=== PATIENT | male | born 1985 | race Hispanic/Latino ===

== ENCOUNTER → 2022-04-18 | Outpatient (CLI) | payer OTHER ==
[2022-04-18 18:06] LABS: BASOPHILS % (AUTO) 0.8 % (0.0-5.0); EOSINOPHILS % (AUTO) 3.3 % (0.0-8.0); HEMATOCRIT 39.2 % (42-54); MEAN CORPUSCULAR HEMOGLOBIN 27.2 pg (27.0-33.0); MEAN CORPUSCULAR HGB CONC 31.1 g/dL (32.0-36.0); MEAN CORPUSCULAR VOLUME 87.5 fL (79-99); MONOCYTES % (AUTO) 8.5 % (3.0-13.0); NEUTROPHILS % (AUTO) 58.1 % (40.0-77.0); PLATELET COUNT (AUTO) 346 K/uL (130-400); RED BLOOD CELL COUNT(AUTO) 4.48 MIL/uL (4.50-6.20); RED CELL DISTRIBUTION WIDTH 14.3 % (11.0-15.5); WHITE BLOOD COUNT (AUTO) 12.9 K/uL (4.8-10.8)
[2022-04-18 18:14] LABS: ALBUMIN 2.5 g/dL (3.5-5.0); CREATININE 0.7 mg/dL (0.5-1.5); POTASSIUM 3.4 mmol/L (3.5-5.1); TOTAL PROTEIN, SERUM 7.7 g/dL (6.0-8.3)
== END | disposition home or self-care (01) ==
LOC: LAB 11:50
PROVIDERS: ATTEND Dermatology
DX: Z79.899 Other long term (current) drug therapy (principal)
CPT/HCPCS: 36415; 80053; 85025; 86480; 86706; 86804; 87350; 87520; 87522

== ENCOUNTER → 2022-12-02 | Outpatient (CLI) | payer OTHER ==
[2022-12-02 07:43] LABS: BASOPHILS # (AUTO) 0.09 K/uL (0.00-0.20); BASOPHILS % (AUTO) 0.6 % (0.0-5.0); EOSINOPHILS # (AUTO) 0.25 K/uL (0.00-0.70); EOSINOPHILS % (AUTO) 1.7 % (0.0-8.0); IMMATURE GRANULOCYTE ABSOLUTE 0.06 K/uL (0-1); LYMPHOCYTES # (AUTO) 3.7 K/uL (1.0-4.8); LYMPHOCYTES % (AUTO) 24.7 % (21.0-51.0); MEAN CORPUSCULAR HEMOGLOBIN 27.6 pg (27.0-33.0); MEAN CORPUSCULAR HGB CONC 31.3 g/dL (32.0-36.0); MEAN CORPUSCULAR VOLUME 88.3 fL (79-99); MONOCYTES # (AUTO) 0.9 K/uL (0.1-1.0); MONOCYTES % (AUTO) 6.2 % (3.0-13.0); NEUTROPHILS # (AUTO) 9.8 K/uL (1.8-7.7); NEUTROPHILS % (AUTO) 66.4 % (40.0-77.0); PLATELET COUNT (AUTO) 398 K/uL (130-400); RED BLOOD CELL COUNT(AUTO) 4.53 MIL/uL (4.50-6.20); RED CELL DISTRIBUTION WIDTH 14.5 % (11.0-15.5); WHITE BLOOD COUNT (AUTO) 14.8 K/uL (4.8-10.8)
[2022-12-02 08:03] LABS: ALBUMIN 3.1 g/dL (3.5-5.0); BILIRUBIN,TOTAL 0.3 mg/dL (0.2-1.0); CREATININE 0.7 mg/dL (0.5-1.5); POTASSIUM 3.6 mmol/L (3.5-5.1); TOTAL PROTEIN, SERUM 8.2 g/dL (6.0-8.3)
== END | disposition home or self-care (01) ==
LOC: LAB 07:24
PROVIDERS: ATTEND Dermatology
DX: L73.2 Hidradenitis suppurativa (principal)
CPT/HCPCS: 36415; 80053; 85025

== ENCOUNTER → 2023-02-06 | Outpatient (CLI) | payer OTHER ==
[2023-02-06 09:44] LABS: HEMATOCRIT 42.8 % (42-54); MEAN CORPUSCULAR VOLUME 87.5 fL (79-99); PLATELET COUNT (AUTO) 291 K/uL (130-400); RED BLOOD CELL COUNT(AUTO) 4.89 MIL/uL (4.50-6.20); RED CELL DISTRIBUTION WIDTH 13.8 % (11.0-15.5); WHITE BLOOD COUNT (AUTO) 9.2 K/uL (4.8-10.8)
[2023-02-06 09:58] LABS: ALBUMIN 3.2 g/dL (3.5-5.0); BILIRUBIN,TOTAL 0.3 mg/dL (0.2-1.0); CREATININE 0.7 mg/dL (0.5-1.5); TOTAL PROTEIN, SERUM 8.3 g/dL (6.0-8.3)
[2023-02-06 10:26] LABS: BASOPHILS % (MANUAL) 1 % (0-2); EOSINOPHILS % (MANUAL) 3 % (1-6); LYMPHOCYTES % (MANUAL) 48 % (22-44); MAN.DIFF COMMENT-IMPRESSION MANUAL DIFFERENTIAL; MONOCYTES % (MANUAL) 9 % (2-9); PLATELET MORPHOLOGY COMMENT ADEQUATE; REACTIVE LYMPHOCYTES 1 % (0-0); SEGMENTED NEUTROPHILS % 38 % (40-70); TOTAL CELLS COUNTED 100
== END | disposition home or self-care (01) ==
LOC: LAB 08:43
PROVIDERS: ATTEND Nurse Practitioner Family
DX: Z00.00 Encounter for general adult medical examination without abnormal findings (principal)
CPT/HCPCS: 36415; 80053; 85025

== ENCOUNTER → 2023-03-31 | Outpatient (CLI) | payer OTHER ==
[2023-03-31 09:07] LABS: BASOPHILS # (AUTO) 0.08 K/uL (0.00-0.20); BASOPHILS % (AUTO) 0.7 % (0.0-5.0); EOSINOPHILS # (AUTO) 0.39 K/uL (0.00-0.70); EOSINOPHILS % (AUTO) 3.2 % (0.0-8.0); HEMATOCRIT 38.8 % (42-54); IMMATURE GRANULOCYTE ABSOLUTE 0.05 K/uL (0-1); LYMPHOCYTES # (AUTO) 2.9 K/uL (1.0-4.8); LYMPHOCYTES % (AUTO) 23.8 % (21.0-51.0); MEAN CORPUSCULAR HEMOGLOBIN 28.1 pg (27.0-33.0); MEAN CORPUSCULAR VOLUME 87.8 fL (79-99); MONOCYTES # (AUTO) 0.9 K/uL (0.1-1.0); MONOCYTES % (AUTO) 7.1 % (3.0-13.0); NEUTROPHILS # (AUTO) 7.8 K/uL (1.8-7.7); NEUTROPHILS % (AUTO) 64.8 % (40.0-77.0); PLATELET COUNT (AUTO) 323 K/uL (130-400); RED BLOOD CELL COUNT(AUTO) 4.42 MIL/uL (4.50-6.20); RED CELL DISTRIBUTION WIDTH 14.2 % (11.0-15.5); WHITE BLOOD COUNT (AUTO) 12.1 K/uL (4.8-10.8)
[2023-03-31 09:19] LABS: ALBUMIN 2.9 g/dL (3.5-5.0); BILIRUBIN,TOTAL 0.3 mg/dL (0.2-1.0); CREATININE 0.7 mg/dL (0.5-1.5); POTASSIUM 3.7 mmol/L (3.5-5.1); TOTAL PROTEIN, SERUM 8.6 g/dL (6.0-8.3)
== END | disposition home or self-care (01) ==
LOC: LAB 08:35
PROVIDERS: ATTEND Dermatology
DX: L73.2 Hidradenitis suppurativa (principal)
CPT/HCPCS: 36415; 80053; 85025

== ENCOUNTER → 2023-04-26 | Outpatient (CLI) | payer OTHER ==
[2023-04-26 09:45] LABS: BASOPHILS # (AUTO) 0.08 K/uL (0.00-0.20); BASOPHILS % (AUTO) 0.7 % (0.0-5.0); EOSINOPHILS % (AUTO) 3.5 % (0.0-8.0); HEMATOCRIT 37.9 % (42-54); IMMATURE GRANULOCYTE ABSOLUTE 0.04 K/uL (0-1); LYMPHOCYTES # (AUTO) 2.8 K/uL (1.0-4.8); LYMPHOCYTES % (AUTO) 24.5 % (21.0-51.0); MEAN CORPUSCULAR HEMOGLOBIN 27.9 pg (27.0-33.0); MEAN CORPUSCULAR HGB CONC 31.7 g/dL (32.0-36.0); MEAN CORPUSCULAR VOLUME 88.1 fL (79-99); MONOCYTES # (AUTO) 0.8 K/uL (0.1-1.0); MONOCYTES % (AUTO) 6.5 % (3.0-13.0); NEUTROPHILS # (AUTO) 7.4 K/uL (1.8-7.7); NEUTROPHILS % (AUTO) 64.5 % (40.0-77.0); PLATELET COUNT (AUTO) 309 K/uL (130-400); RED CELL DISTRIBUTION WIDTH 14.5 % (11.0-15.5); WHITE BLOOD COUNT (AUTO) 11.5 K/uL (4.8-10.8)
== END | disposition home or self-care (01) ==
LOC: LAB 09:08
PROVIDERS: ATTEND Dermatology
DX: L73.2 Hidradenitis suppurativa (principal)
CPT/HCPCS: 36415; 85025

== ENCOUNTER → 2023-06-02 | Outpatient (CLI) | payer OTHER ==
[2023-06-02 10:36] LABS: BASOPHILS # (AUTO) 0.09 K/uL (0.00-0.20); BASOPHILS % (AUTO) 0.7 % (0.0-5.0); EOSINOPHILS # (AUTO) 0.38 K/uL (0.00-0.70); EOSINOPHILS % (AUTO) 3.1 % (0.0-8.0); HEMATOCRIT 33.7 % (42-54); IMMATURE GRANULOCYTE ABSOLUTE 0.06 K/uL (0-1); LYMPHOCYTES % (AUTO) 24.5 % (21.0-51.0); MEAN CORPUSCULAR HEMOGLOBIN 30.5 pg (27.0-33.0); MEAN CORPUSCULAR HGB CONC 31.2 g/dL (32.0-36.0); MONOCYTES % (AUTO) 8.1 % (3.0-13.0); NEUTROPHILS # (AUTO) 7.7 K/uL (1.8-7.7); NEUTROPHILS % (AUTO) 63.1 % (40.0-77.0); PLATELET COUNT (AUTO) 286 K/uL (130-400); RED BLOOD CELL COUNT(AUTO) 3.44 MIL/uL (4.50-6.20); RED CELL DISTRIBUTION WIDTH 15.3 % (11.0-15.5); WHITE BLOOD COUNT (AUTO) 12.3 K/uL (4.8-10.8)
== END | disposition home or self-care (01) ==
LOC: LAB 09:06
PROVIDERS: ATTEND Dermatology
DX: L73.2 Hidradenitis suppurativa (principal)
CPT/HCPCS: 36415; 85025

== ENCOUNTER → 2023-07-07 | Outpatient (CLI) | payer OTHER ==
[2023-07-07 16:55] LABS: BASOPHILS # (AUTO) 0.11 K/uL (0.00-0.20); BASOPHILS % (AUTO) 0.7 % (0.0-5.0); EOSINOPHILS # (AUTO) 0.36 K/uL (0.00-0.70); EOSINOPHILS % (AUTO) 2.2 % (0.0-8.0); HEMATOCRIT 34.4 % (42-54); LYMPHOCYTES # (AUTO) 4.2 K/uL (1.0-4.8); LYMPHOCYTES % (AUTO) 25.1 % (21.0-51.0); MEAN CORPUSCULAR HEMOGLOBIN 30.3 pg (27.0-33.0); MEAN CORPUSCULAR HGB CONC 31.7 g/dL (32.0-36.0); MEAN CORPUSCULAR VOLUME 95.6 fL (79-99); MONOCYTES # (AUTO) 1.1 K/uL (0.1-1.0); MONOCYTES % (AUTO) 6.5 % (3.0-13.0); NEUTROPHILS # (AUTO) 10.8 K/uL (1.8-7.7); NEUTROPHILS % (AUTO) 64.9 % (40.0-77.0); PLATELET COUNT (AUTO) 341 K/uL (130-400); RED CELL DISTRIBUTION WIDTH 14.6 % (11.0-15.5); WHITE BLOOD COUNT (AUTO) 16.6 K/uL (4.8-10.8)
[2023-07-07 17:16] LABS: ALBUMIN 2.9 g/dL (3.5-5.0); BILIRUBIN,TOTAL 0.7 mg/dL (0.2-1.0); CREATININE 0.8 mg/dL (0.5-1.3); POTASSIUM 4.1 mmol/L (3.5-5.1); TOTAL PROTEIN, SERUM 8.5 g/dL (6.0-8.3)
[2023-07-11 15:14] LABS: QUANTIFERON MITOGEN VALUE >10.00 IU/mL (.); QUANTIFERON NIL VALUE 0.02 IU/mL (.)
== END | disposition home or self-care (01) ==
LOC: LAB 09:11
PROVIDERS: ATTEND Dermatology
DX: L73.2 Hidradenitis suppurativa (principal)
CPT/HCPCS: 36415; 80053; 85025; 86480

== ENCOUNTER 2023-10-27 08:39 | Day surgery (SDC) | payer OTHER ==
[2023-10-19 10:42] VITALS: BP 121/68; PULSE 74; RESP 19
[2023-10-19 10:55] LABS: BASOPHILS # (AUTO) 0.08 K/uL (0.00-0.20); BASOPHILS % (AUTO) 0.8 % (0.0-5.0); EOSINOPHILS # (AUTO) 0.26 K/uL (0.00-0.70); EOSINOPHILS % (AUTO) 2.5 % (0.0-8.0); HEMATOCRIT 35.3 % (42-54); IMMATURE GRANULOCYTE ABSOLUTE 0.03 K/uL (0-1); LYMPHOCYTES # (AUTO) 2.7 K/uL (1.0-4.8); LYMPHOCYTES % (AUTO) 25.4 % (21.0-51.0); MEAN CORPUSCULAR HEMOGLOBIN 30.1 pg (27.0-33.0); MEAN CORPUSCULAR HGB CONC 31.2 g/dL (32.0-36.0); MEAN CORPUSCULAR VOLUME 96.7 fL (79-99); MONOCYTES # (AUTO) 0.8 K/uL (0.1-1.0); MONOCYTES % (AUTO) 7.5 % (3.0-13.0); NEUTROPHILS # (AUTO) 6.7 K/uL (1.8-7.7); NEUTROPHILS % (AUTO) 63.5 % (40.0-77.0); PLATELET COUNT (AUTO) 320 K/uL (130-400); RED BLOOD CELL COUNT(AUTO) 3.65 MIL/uL (4.50-6.20); WHITE BLOOD COUNT (AUTO) 10.5 K/uL (4.8-10.8)
[2023-10-19 11:03] LABS: CREATININE 0.7 mg/dL (0.5-1.3)
[2023-10-19 11:18] LABS: PROTHROMBIN TIME 10.8 SEC (9.6-11.6)
[2023-10-19 11:20] LABS: PARTIAL THROMBOPLASTIN TIME 29.2 SEC (26.3-35.5)
[~2023-10-27] VITALS: Ht 167.6 cm; Wt 93.6 kg
[2023-10-27] VITALS (18 sets, daily range): BP systolic 92–139; BP diastolic 49–77; PULSE 60–88; RESP 15–20
[~2023-10-27 08:39] MED LIST: ADAL40SY SQ; CHOL500045 PO; CYAN-106 PO; DAPS100T PO; FERR-82 PO; FOLI0.8T3 PO
[2023-10-27] MEDS ORDERED: CEFAZOLIN SODIUM 2 GM VIAL ONE (09:26)
[2023-10-27] MEDS ORDERED: CLINDAMYCIN IVPB 900MG/50ML 50 ML IV ONE (09:46)
[2023-10-27] MEDS ORDERED: ACETAMINOPHEN 1,000 MG/100 ML VIAL IV ONE (09:52)
[2023-10-27] MEDS ORDERED: MORPHINE 2 MG SYG ONE (09:52)
[2023-10-27] MEDS ORDERED: LIDOCAINE PF 100MG/5ML (2%) SYRINGE 5ML ONE ×2 (09:54→09:58)
[2023-10-27] MEDS ORDERED: EPINEPHRINE PF 1MG (1:1,000) 1 MG/ML AMP ONE (09:54)
[2023-10-27] MEDS ORDERED: BUPIVACAINE/PF 0.5% 30ML VIAL ONE (09:54)
[2023-10-27] MEDS ORDERED: MIDAZOLAM HCL 1 MG/ML 2ML VIAL ONE (09:55)
[2023-10-27] MEDS ORDERED: PROPOFOL 10 MG/ML 20ML VIAL IV ONE (09:55)
[2023-10-27] MEDS ORDERED: FENTANYL CITRATE PF 50 MCG/1 ML 2ML VIAL ONE ×2 (09:55→10:36)
[2023-10-27] MEDS ORDERED: IRON INFUSION (09:59)
[2023-10-27] MEDS: LACTATED RINGERS 1000ML 1,000 ML IV ONE (10:07)
[2023-10-27] MEDS ORDERED: DEXAMETHASONE SOD PHOSPHATE 4 MG/ML 1ML VIAL ONE (10:19)
[2023-10-27] MEDS ORDERED: ONDANSETRON 4MG INJ ONE (10:20)
[2023-10-27] MEDS: CLINDAMYCIN 900MG/6ML INJ IV ONE (10:25)
[2023-10-27] MEDS ORDERED: GABA-529 PO (10:56)
[2023-10-27] MEDS ORDERED: DOCU-116 PO (10:56)
[2023-10-27] MEDS ORDERED: TRAM50TA4 PO (10:56)
[2023-10-27] MEDS ORDERED: EPHEDRINE SULFATE 50 MG/ML AMPULE ONE (10:59)
[2023-10-27] MEDS: MEPERIDINE-PF 25 MG/ML SYG ONE ×2 (11:52→12:02)
[2023-10-27] MEDS: KETOROLAC 30MG VIAL (30MG/ML) ONE (12:09)
[2023-10-27] MEDS ORDERED: PHENAZOPYRIDINE HCL 200 MG TABLET PO ONE (14:30)
== END 2023-10-27 13:38 | disposition home or self-care (01) ==
LOC: DAH 08:39
PROVIDERS: ATTEND Surgery
DX: L72.0 Epidermal cyst (principal); L02.214 Cutaneous abscess of groin; L73.2 Hidradenitis suppurativa; D72.829 Elevated white blood cell count, unspecified; J45.909 Unspecified asthma, uncomplicated; E66.9 Obesity, unspecified; Z98.84 Bariatric surgery status; Z79.899 Other long term (current) drug therapy; Z79.01 Long term (current) use of anticoagulants; Z79.4 Long term (current) use of insulin; Z88.0 Allergy status to penicillin
CPT/HCPCS: 80048; 85025; 85610; 85730; 86850 ×2; 86900 ×2; 86901 ×2; 36415 ×2; 11406; 88304; A6260; J1100; A4663; J7120 ×2; J3010 ×2; J2270; J2001; J0171; J3490 ×2; J2250; J2704; J2405; J1885; J0665; J2175 ×2; A5120; A4215; A4223; A4213; A4222; A4221; A4600; J0690

== ENCOUNTER → 2023-11-03 | Outpatient (CLI) | payer OTHER ==
[~2023-11-03] MED LIST changes: +DOCU-116 PO; +GABA-529 PO; +IRON INFUSION; +TRAM50TA4 PO
== END | disposition home or self-care (01) ==
LOC: WHH 09:32
PROVIDERS: ATTEND Family Medicine
DX: T81.31XA Disruption of external operation (surgical) wound, not elsewhere classified, initial encounter (principal); S71.102A Unspecified open wound, left thigh, initial encounter; L73.2 Hidradenitis suppurativa; J45.909 Unspecified asthma, uncomplicated; E66.9 Obesity, unspecified; Z79.4 Long term (current) use of insulin; Z79.899 Other long term (current) drug therapy; X58.XXXA Exposure to other specified factors, initial encounter; Y83.8 Other surgical procedures as the cause of abnormal reaction of the patient, or of later complication, without mention of misadventure at the time of the procedure; Y92.89 Other specified places as the place of occurrence of the external cause; Y93.89 Activity, other specified; Y99.8 Other external cause status
CPT/HCPCS: 97606; A6197 ×3; A6196

== ENCOUNTER → 2023-11-06 | Outpatient (CLI) | payer OTHER | END | disposition home or self-care (01) | LOC: WHH 08:04 | PROVIDERS: ATTEND Family Medicine | DX: T81.31XD Disruption of external operation (surgical) wound, not elsewhere classified, subsequent encounter (principal); L73.2 Hidradenitis suppurativa; S71.102A Unspecified open wound, left thigh, initial encounter; J45.909 Unspecified asthma, uncomplicated; E66.9 Obesity, unspecified; Z79.4 Long term (current) use of insulin; Z79.899 Other long term (current) drug therapy; X58.XXXA Exposure to other specified factors, initial encounter; Y83.8 Other surgical procedures as the cause of abnormal reaction of the patient, or of later complication, without mention of misadventure at the time of the procedure; Y92.89 Other specified places as the place of occurrence of the external cause; Y93.89 Activity, other specified; Y99.8 Other external cause status | CPT/HCPCS: 97606; A6196 ×2; A6197 ×2 ==

== ENCOUNTER → 2023-11-08 | Outpatient (CLI) | payer OTHER | END | disposition home or self-care (01) | LOC: WHH 10:48 | PROVIDERS: ATTEND Family Medicine | DX: T81.31XD Disruption of external operation (surgical) wound, not elsewhere classified, subsequent encounter (principal); S71.102D Unspecified open wound, left thigh, subsequent encounter; L73.2 Hidradenitis suppurativa; Z79.899 Other long term (current) drug therapy; Y83.8 Other surgical procedures as the cause of abnormal reaction of the patient, or of later complication, without mention of misadventure at the time of the procedure; X58.XXXD Exposure to other specified factors, subsequent encounter | CPT/HCPCS: 97606; 87086 ×3; 87186 ×3; 87070; A6196 ×2; A6197; A4450 ==

== ENCOUNTER → 2023-11-10 | Outpatient (CLI) | payer OTHER | END | disposition home or self-care (01) | LOC: WHH 13:02 | PROVIDERS: ATTEND Family Medicine | DX: T81.31XD Disruption of external operation (surgical) wound, not elsewhere classified, subsequent encounter (principal); S71.102D Unspecified open wound, left thigh, subsequent encounter; L73.2 Hidradenitis suppurativa; J45.909 Unspecified asthma, uncomplicated; E66.9 Obesity, unspecified; Z79.4 Long term (current) use of insulin; Z79.899 Other long term (current) drug therapy; X58.XXXD Exposure to other specified factors, subsequent encounter; Y83.8 Other surgical procedures as the cause of abnormal reaction of the patient, or of later complication, without mention of misadventure at the time of the procedure | CPT/HCPCS: 97606; A6196; A6197 ==

== ENCOUNTER 2023-11-13 11:18 | Inpatient (IN) | payer OTHER ==
[~2023-11-13] VITALS: Ht 165.1 cm; Wt 94.3 kg
[2023-11-13] MEDS ORDERED: MORPHINE 2 MG SYG IVP PRN (13:00)
[2023-11-13] MEDS ORDERED: acetaMINOPHEN 500 MG TABLET PO PRN (13:00)
[2023-11-13] MEDS ORDERED: KETOROLAC 15MG/ML VIAL (15MG/ML) IV PRN (13:00)
[2023-11-13] MEDS ORDERED: VANCOMYCIN PROTOCOL PER PHARMACY IV SCH (13:30)
[2023-11-13] MEDS ORDERED: COMPOUND IV MISC 1 EACH IVSOLN MISC PRN (13:30)
[2023-11-13 13:38] LABS: BASOPHILS # (AUTO) 0.07 K/uL (0.00-0.20); BASOPHILS % (AUTO) 0.5 % (0.0-5.0); EOSINOPHILS # (AUTO) 0.44 K/uL (0.00-0.70); EOSINOPHILS % (AUTO) 3.2 % (0.0-8.0); HEMATOCRIT 28.6 % (42-54); LYMPHOCYTES # (AUTO) 2.3 K/uL (1.0-4.8); LYMPHOCYTES % (AUTO) 16.9 % (21.0-51.0); MEAN CORPUSCULAR HEMOGLOBIN 29.8 pg (27.0-33.0); MEAN CORPUSCULAR HGB CONC 31.1 g/dL (32.0-36.0); MEAN CORPUSCULAR VOLUME 95.7 fL (79-99); MONOCYTES # (AUTO) 0.8 K/uL (0.1-1.0); NEUTROPHILS % (AUTO) 72.7 % (40.0-77.0); PLATELET COUNT (AUTO) 429 K/uL (130-400); RED BLOOD CELL COUNT(AUTO) 2.99 MIL/uL (4.50-6.20); RED CELL DISTRIBUTION WIDTH 16.4 % (11.0-15.5); WHITE BLOOD COUNT (AUTO) 13.8 K/uL (4.8-10.8)
[2023-11-13 13:54] LABS: INR 1.01 (0.85-1.15); PROTHROMBIN TIME 10.9 SEC (9.6-11.6)
[2023-11-13 13:55] LABS: PARTIAL THROMBOPLASTIN TIME 28.5 SEC (26.3-35.5)
[2023-11-13 13:57] LABS: ALBUMIN 2.4 g/dL (3.5-5.0); BILIRUBIN,TOTAL 0.7 mg/dL (0.2-1.0); CREATININE 0.7 mg/dL (0.5-1.3); POTASSIUM 3.6 mmol/L (3.5-5.1); THYROID STIMULATING HORMONE 1.78 uIU/mL (0.36-3.74); TOTAL PROTEIN, SERUM 7.9 g/dL (6.0-8.3)
[2023-11-13] MEDS: MEROPENEM 1 GM in 0.9%NACL 100ML 100 ML IVPB SCH (13:59)
[2023-11-13] MEDS: VANCOMYCIN 2GM/500 ML BAG 500 ML IV ONE (14:00)
[2023-11-13] MEDS: 0.9%NACL 1000ML 1,000 ML IV SCH (14:00)
[2023-11-13] MEDS: DiphenhydrAMINE HCL 50 MG/ML VIAL IV ONE (14:44)
[2023-11-13] MEDS: DiphenhydrAMINE HCL 50 MG/ML VIAL ONE (14:44)
[2023-11-13] MEDS: LEVOFLOXACIN 500 MG/D5W 100 ML 100 ML IV SCH (18:48)
[2023-11-13 20:20] VITALS: BP 128/87; PULSE 93; RESP 18
[2023-11-13] MEDS: VANCOMYCIN 1G/250ML KIT 250 ML IV SCH (21:26)
[2023-11-13] MEDS: TRAMADOL HCL 50 MG TABLET PO PRN (21:55)
[2023-11-13 23:45] VITALS: BP 110/60; PULSE 92; RESP 17
[2023-11-14 04:00] VITALS: BP 102/62; PULSE 94; RESP 17
[2023-11-14 07:05] VITALS: BP 139/65; PULSE 87; RESP 20
[2023-11-14 07:13] LABS: BASOPHILS # (AUTO) 0.06 K/uL (0.00-0.20); BASOPHILS % (AUTO) 0.5 % (0.0-5.0); EOSINOPHILS # (AUTO) 0.34 K/uL (0.00-0.70); HEMATOCRIT 25.2 % (42-54); IMMATURE GRANULOCYTE ABSOLUTE 0.09 K/uL (0-1); LYMPHOCYTES # (AUTO) 3.2 K/uL (1.0-4.8); LYMPHOCYTES % (AUTO) 28.3 % (21.0-51.0); MEAN CORPUSCULAR HEMOGLOBIN 30.1 pg (27.0-33.0); MEAN CORPUSCULAR VOLUME 97.3 fL (79-99); MONOCYTES % (AUTO) 8.6 % (3.0-13.0); NEUTROPHILS # (AUTO) 6.6 K/uL (1.8-7.7); NEUTROPHILS % (AUTO) 58.8 % (40.0-77.0); PLATELET COUNT (AUTO) 368 K/uL (130-400); RED BLOOD CELL COUNT(AUTO) 2.59 MIL/uL (4.50-6.20); RED CELL DISTRIBUTION WIDTH 16.8 % (11.0-15.5); WHITE BLOOD COUNT (AUTO) 11.2 K/uL (4.8-10.8)
[2023-11-14 07:25] LABS: % IRON SATURATION 31.3 % (30-44)
[2023-11-14 08:00] VITALS: O2SAT 98
[2023-11-14 08:02] LABS: ALBUMIN 2.1 g/dL (3.5-5.0); BILIRUBIN,TOTAL 0.5 mg/dL (0.2-1.0); CREATININE 0.7 mg/dL (0.5-1.3); MAGNESIUM 1.9 mg/dL (1.80-2.40); POTASSIUM 4.1 mmol/L (3.5-5.1)
[2023-11-14] MEDS: ENOXAPARIN SODIUM 40 MG/0.4 ML SYRINGE SQ SCH (08:53)
[2023-11-14 11:47] VITALS: BP 108/60; PULSE 62; RESP 18
[2023-11-14 14:05] VITALS: BP 109/62; PULSE 79; RESP 20
[2023-11-14 20:00] VITALS: BP 114/65; PULSE 79; RESP 18; O2SAT 99
[2023-11-15] VITALS: BP 118/75; PULSE 84; RESP 18
[2023-11-15 04:00] VITALS: BP 106/54; PULSE 78; RESP 18
[2023-11-15 06:32] LABS: BASOPHILS # (AUTO) 0.08 K/uL (0.00-0.20); BASOPHILS % (AUTO) 0.8 % (0.0-5.0); EOSINOPHILS # (AUTO) 0.43 K/uL (0.00-0.70); EOSINOPHILS % (AUTO) 4.3 % (0.0-8.0); HEMATOCRIT 24.3 % (42-54); IMMATURE GRANULOCYTE ABSOLUTE 0.08 K/uL (0-1); LYMPHOCYTES # (AUTO) 3.2 K/uL (1.0-4.8); MEAN CORPUSCULAR HEMOGLOBIN 30.5 pg (27.0-33.0); MEAN CORPUSCULAR HGB CONC 31.3 g/dL (32.0-36.0); MEAN CORPUSCULAR VOLUME 97.6 fL (79-99); MONOCYTES # (AUTO) 0.9 K/uL (0.1-1.0); MONOCYTES % (AUTO) 8.9 % (3.0-13.0); NEUTROPHILS # (AUTO) 5.4 K/uL (1.8-7.7); NEUTROPHILS % (AUTO) 53.2 % (40.0-77.0); PLATELET COUNT (AUTO) 334 K/uL (130-400); RED BLOOD CELL COUNT(AUTO) 2.49 MIL/uL (4.50-6.20); RED CELL DISTRIBUTION WIDTH 16.6 % (11.0-15.5); WHITE BLOOD COUNT (AUTO) 10.1 K/uL (4.8-10.8)
[2023-11-15 06:36] LABS: ALBUMIN 1.9 g/dL (3.5-5.0); BILIRUBIN,TOTAL 0.5 mg/dL (0.2-1.0); CREATININE 0.6 mg/dL (0.5-1.3); MAGNESIUM 1.9 mg/dL (1.80-2.40); POTASSIUM 3.7 mmol/L (3.5-5.1); TOTAL PROTEIN, SERUM 6.6 g/dL (6.0-8.3)
[2023-11-15 08:00] VITALS: BP 115/58; PULSE 76; RESP 18; O2SAT 100
[2023-11-15 12:00] VITALS: BP 119/62; PULSE 86; RESP 18
[2023-11-15 16:00] VITALS: BP 108/58; PULSE 79; RESP 19
[2023-11-15 20:00] VITALS: BP 111/70; PULSE 88; RESP 20
[2023-11-16] VITALS: BP 110/54; PULSE 83; RESP 20
[2023-11-16 02:59] VITALS: O2SAT 100
[2023-11-16 04:00] VITALS: BP 98/58; PULSE 72; RESP 18
[2023-11-16 04:40] LABS: BASOPHILS # (AUTO) 0.07 K/uL (0.00-0.20); BASOPHILS % (AUTO) 0.7 % (0.0-5.0); EOSINOPHILS # (AUTO) 0.48 K/uL (0.00-0.70); EOSINOPHILS % (AUTO) 4.7 % (0.0-8.0); IMMATURE GRANULOCYTE ABSOLUTE 0.06 K/uL (0-1); LYMPHOCYTES # (AUTO) 3.5 K/uL (1.0-4.8); LYMPHOCYTES % (AUTO) 33.9 % (21.0-51.0); MEAN CORPUSCULAR HEMOGLOBIN 30.6 pg (27.0-33.0); MEAN CORPUSCULAR HGB CONC 31.2 g/dL (32.0-36.0); MONOCYTES # (AUTO) 0.7 K/uL (0.1-1.0); MONOCYTES % (AUTO) 7.2 % (3.0-13.0); NEUTROPHILS # (AUTO) 5.5 K/uL (1.8-7.7); NEUTROPHILS % (AUTO) 52.9 % (40.0-77.0); PLATELET COUNT (AUTO) 351 K/uL (130-400); RED BLOOD CELL COUNT(AUTO) 2.55 MIL/uL (4.50-6.20); RED CELL DISTRIBUTION WIDTH 16.8 % (11.0-15.5); WHITE BLOOD COUNT (AUTO) 10.3 K/uL (4.8-10.8)
[2023-11-16 04:58] LABS: BILIRUBIN,TOTAL 0.5 mg/dL (0.2-1.0); CREATININE 0.7 mg/dL (0.5-1.3); MAGNESIUM 2.1 mg/dL (1.80-2.40); POTASSIUM 3.8 mmol/L (3.5-5.1); TOTAL PROTEIN, SERUM 6.8 g/dL (6.0-8.3)
[2023-11-16 08:00] VITALS: BP 109/54; PULSE 72; RESP 18; O2SAT 97
[2023-11-16] MEDS ORDERED: NON-FORMULARY MEDICATION 1 EACH (Ferrous Sulfate (Iron) 325 MG) PO SCH (09:00)
[2023-11-16] MEDS: CYANOCOBALAMIN (VITAMIN B-12) 1,000 MCG TABLET PO SCH (09:55)
[2023-11-16] MEDS: FERROUS SULFATE 325 MG TABLET.DR PO SCH (09:56)
[2023-11-16] MEDS: FOLIC ACID 0.8 MG PO SCH (10:21)
[2023-11-16 12:00] VITALS: BP 119/62; PULSE 78; RESP 18
== END 2023-11-16 17:00 | disposition home or self-care (01) | DRG 863 ==
LOC: EDH 11:18 → EDHIP 11:19 → 4BH 19:55
PROVIDERS: ADMIT Internal Medicine; ATTEND Internal Medicine
DX: T81.41XA Infection following a procedure, superficial incisional surgical site, initial encounter (principal); L03.314 Cellulitis of groin; D84.9 Immunodeficiency, unspecified; B95.2 Enterococcus as the cause of diseases classified elsewhere; B96.4 Proteus (mirabilis) (morganii) as the cause of diseases classified elsewhere; B96.1 Klebsiella pneumoniae [K. pneumoniae] as the cause of diseases classified elsewhere; Y83.8 Other surgical procedures as the cause of abnormal reaction of the patient, or of later complication, without mention of misadventure at the time of the procedure; D64.9 Anemia, unspecified; E66.01 Morbid (severe) obesity due to excess calories; J45.909 Unspecified asthma, uncomplicated; L73.2 Hidradenitis suppurativa; Z88.0 Allergy status to penicillin; Z68.34 Body mass index [BMI] 34.0-34.9, adult
CPT/HCPCS: 36415; 80053; 80202; 82607; 82728; 82746; 83036; 83540; 83550; 83605; 83735; 84145; 84443; 85025; 85610; 85730; 86140; 86850; 86900; 86901; 87040; 87070; 87076; 87086; 87186; 93005; G0378; J1200; J1650; J1956; J2185; J3370

== ENCOUNTER → 2023-11-13 | Outpatient (CLI) | payer OTHER | END | disposition home or self-care (01) | LOC: WHH 08:16 | PROVIDERS: ATTEND Family Medicine | DX: T81.31XD Disruption of external operation (surgical) wound, not elsewhere classified, subsequent encounter (principal); S71.102D Unspecified open wound, left thigh, subsequent encounter; L73.2 Hidradenitis suppurativa; J45.909 Unspecified asthma, uncomplicated; E66.9 Obesity, unspecified; Z79.4 Long term (current) use of insulin; Z79.899 Other long term (current) drug therapy; X58.XXXD Exposure to other specified factors, subsequent encounter; Y83.8 Other surgical procedures as the cause of abnormal reaction of the patient, or of later complication, without mention of misadventure at the time of the procedure | CPT/HCPCS: 99214; A6253; A6260 ==

== ENCOUNTER → 2023-11-20 | Outpatient (CLI) | payer OTHER | END | disposition home or self-care (01) | LOC: WHH 11:18 | PROVIDERS: ATTEND Family Medicine | DX: T81.31XD Disruption of external operation (surgical) wound, not elsewhere classified, subsequent encounter (principal); S71.102D Unspecified open wound, left thigh, subsequent encounter; L73.2 Hidradenitis suppurativa; J45.909 Unspecified asthma, uncomplicated; E66.9 Obesity, unspecified; Z79.4 Long term (current) use of insulin; Z79.899 Other long term (current) drug therapy; X58.XXXD Exposure to other specified factors, subsequent encounter; Y83.8 Other surgical procedures as the cause of abnormal reaction of the patient, or of later complication, without mention of misadventure at the time of the procedure | CPT/HCPCS: 97606 ==

== ENCOUNTER → 2023-11-23 | Outpatient (CLI) | payer OTHER | END | disposition home or self-care (01) | LOC: WHH 10:54 | PROVIDERS: ATTEND Family Medicine | DX: T81.31XD Disruption of external operation (surgical) wound, not elsewhere classified, subsequent encounter (principal); S71.102D Unspecified open wound, left thigh, subsequent encounter; L73.2 Hidradenitis suppurativa; J45.909 Unspecified asthma, uncomplicated; E66.09 Other obesity due to excess calories; Z68.34 Body mass index [BMI] 34.0-34.9, adult; Z79.4 Long term (current) use of insulin; Z79.899 Other long term (current) drug therapy; X58.XXXD Exposure to other specified factors, subsequent encounter; Y83.8 Other surgical procedures as the cause of abnormal reaction of the patient, or of later complication, without mention of misadventure at the time of the procedure | CPT/HCPCS: 97606 ==

== ENCOUNTER → 2023-11-27 | Outpatient (CLI) | payer OTHER | END | disposition home or self-care (01) | LOC: WHH 11:06 | PROVIDERS: ATTEND Family Medicine | DX: T81.31XD Disruption of external operation (surgical) wound, not elsewhere classified, subsequent encounter (principal); S71.102D Unspecified open wound, left thigh, subsequent encounter; L73.2 Hidradenitis suppurativa; J45.909 Unspecified asthma, uncomplicated; E66.09 Other obesity due to excess calories; Z68.34 Body mass index [BMI] 34.0-34.9, adult; Z79.899 Other long term (current) drug therapy; X58.XXXD Exposure to other specified factors, subsequent encounter; Y83.8 Other surgical procedures as the cause of abnormal reaction of the patient, or of later complication, without mention of misadventure at the time of the procedure | CPT/HCPCS: 97606 ==

== ENCOUNTER → 2023-11-29 | Outpatient (CLI) | payer OTHER | END | disposition home or self-care (01) | LOC: WHH 10:45 | PROVIDERS: ATTEND Family Medicine | DX: T81.31XD Disruption of external operation (surgical) wound, not elsewhere classified, subsequent encounter (principal); S71.102D Unspecified open wound, left thigh, subsequent encounter; L73.2 Hidradenitis suppurativa; J45.909 Unspecified asthma, uncomplicated; E66.09 Other obesity due to excess calories; Z68.34 Body mass index [BMI] 34.0-34.9, adult; Z79.4 Long term (current) use of insulin; Z79.899 Other long term (current) drug therapy; X58.XXXD Exposure to other specified factors, subsequent encounter; Y83.8 Other surgical procedures as the cause of abnormal reaction of the patient, or of later complication, without mention of misadventure at the time of the procedure | CPT/HCPCS: 97606 ==

== ENCOUNTER → 2023-12-01 | Outpatient (CLI) | payer OTHER | END | disposition home or self-care (01) | LOC: WHH 08:57 | PROVIDERS: ATTEND Family Medicine | DX: T81.31XD Disruption of external operation (surgical) wound, not elsewhere classified, subsequent encounter (principal); S71.102D Unspecified open wound, left thigh, subsequent encounter; L73.2 Hidradenitis suppurativa; J45.909 Unspecified asthma, uncomplicated; E66.9 Obesity, unspecified; Z79.4 Long term (current) use of insulin; Z79.899 Other long term (current) drug therapy; Z68.34 Body mass index [BMI] 34.0-34.9, adult; X58.XXXD Exposure to other specified factors, subsequent encounter; Y83.8 Other surgical procedures as the cause of abnormal reaction of the patient, or of later complication, without mention of misadventure at the time of the procedure | CPT/HCPCS: 97606 ==

== ENCOUNTER → 2023-12-14 | Outpatient (CLI) | payer OTHER | END | disposition home or self-care (01) | LOC: WHH 10:50 | PROVIDERS: ATTEND Family Medicine | DX: T81.31XD Disruption of external operation (surgical) wound, not elsewhere classified, subsequent encounter (principal); S71.102D Unspecified open wound, left thigh, subsequent encounter; L73.2 Hidradenitis suppurativa; J45.909 Unspecified asthma, uncomplicated; E66.9 Obesity, unspecified; Z79.4 Long term (current) use of insulin; Z68.34 Body mass index [BMI] 34.0-34.9, adult; Z79.899 Other long term (current) drug therapy; X58.XXXD Exposure to other specified factors, subsequent encounter; Y83.8 Other surgical procedures as the cause of abnormal reaction of the patient, or of later complication, without mention of misadventure at the time of the procedure | CPT/HCPCS: 99214; A6260 ==

== ENCOUNTER → 2023-12-26 | Outpatient (CLI) | payer OTHER ==
[~2023-12-26] MED LIST changes: +LIDOCAINE HCL 4% LTA SOL 4 ML VIAL TP ONE
== END | disposition home or self-care (01) ==
LOC: WHH 09:05
PROVIDERS: ATTEND Family Medicine
DX: T81.31XD Disruption of external operation (surgical) wound, not elsewhere classified, subsequent encounter (principal); S71.102D Unspecified open wound, left thigh, subsequent encounter; L73.2 Hidradenitis suppurativa; J45.909 Unspecified asthma, uncomplicated; E66.9 Obesity, unspecified; Z79.4 Long term (current) use of insulin; Z68.34 Body mass index [BMI] 34.0-34.9, adult; Z79.899 Other long term (current) drug therapy; X58.XXXD Exposure to other specified factors, subsequent encounter; Y83.8 Other surgical procedures as the cause of abnormal reaction of the patient, or of later complication, without mention of misadventure at the time of the procedure
CPT/HCPCS: 99214; A6248; A6260

== ENCOUNTER → 2024-01-01 | Outpatient (CLI) | payer OTHER ==
[~2024-01-01] MED LIST changes: -LIDOCAINE HCL 4% LTA SOL 4 ML VIAL TP ONE
== END | disposition home or self-care (01) ==
LOC: WHH 08:02
PROVIDERS: ATTEND Family Medicine
DX: T81.31XD Disruption of external operation (surgical) wound, not elsewhere classified, subsequent encounter (principal); S71.102D Unspecified open wound, left thigh, subsequent encounter; L73.2 Hidradenitis suppurativa; J45.909 Unspecified asthma, uncomplicated; E66.9 Obesity, unspecified; Z79.4 Long term (current) use of insulin; Z68.34 Body mass index [BMI] 34.0-34.9, adult; Z79.899 Other long term (current) drug therapy; X58.XXXD Exposure to other specified factors, subsequent encounter; Y83.8 Other surgical procedures as the cause of abnormal reaction of the patient, or of later complication, without mention of misadventure at the time of the procedure
CPT/HCPCS: 99214; A6260

== ENCOUNTER → 2024-01-08 | Outpatient (CLI) | payer OTHER | END | disposition home or self-care (01) | LOC: WHH 10:03 | PROVIDERS: ATTEND Family Medicine | DX: T81.31XD Disruption of external operation (surgical) wound, not elsewhere classified, subsequent encounter (principal); S71.102D Unspecified open wound, left thigh, subsequent encounter; L73.2 Hidradenitis suppurativa; J45.909 Unspecified asthma, uncomplicated; E66.9 Obesity, unspecified; Z79.4 Long term (current) use of insulin; Z79.899 Other long term (current) drug therapy; X58.XXXD Exposure to other specified factors, subsequent encounter; Y83.8 Other surgical procedures as the cause of abnormal reaction of the patient, or of later complication, without mention of misadventure at the time of the procedure | CPT/HCPCS: 99214; A4450; A6260 ==

== ENCOUNTER → 2024-01-15 | Outpatient (CLI) | payer OTHER | END | disposition home or self-care (01) | LOC: WHH 10:17 | PROVIDERS: ATTEND Family Medicine | DX: T81.31XD Disruption of external operation (surgical) wound, not elsewhere classified, subsequent encounter (principal); S71.102D Unspecified open wound, left thigh, subsequent encounter; L73.2 Hidradenitis suppurativa; E66.01 Morbid (severe) obesity due to excess calories; J45.909 Unspecified asthma, uncomplicated; Z79.4 Long term (current) use of insulin; Z68.34 Body mass index [BMI] 34.0-34.9, adult; Z79.899 Other long term (current) drug therapy; X58.XXXD Exposure to other specified factors, subsequent encounter; Y83.8 Other surgical procedures as the cause of abnormal reaction of the patient, or of later complication, without mention of misadventure at the time of the procedure | CPT/HCPCS: 99214 ==

== ENCOUNTER → 2024-01-22 | Outpatient (CLI) | payer OTHER | END | disposition home or self-care (01) | LOC: WHH 09:58 | PROVIDERS: ATTEND Family Medicine | DX: T81.31XD Disruption of external operation (surgical) wound, not elsewhere classified, subsequent encounter (principal); S71.102D Unspecified open wound, left thigh, subsequent encounter; L73.2 Hidradenitis suppurativa; E66.01 Morbid (severe) obesity due to excess calories; J45.909 Unspecified asthma, uncomplicated; Z79.4 Long term (current) use of insulin; Z68.34 Body mass index [BMI] 34.0-34.9, adult; Z79.899 Other long term (current) drug therapy; X58.XXXD Exposure to other specified factors, subsequent encounter; Y83.8 Other surgical procedures as the cause of abnormal reaction of the patient, or of later complication, without mention of misadventure at the time of the procedure | CPT/HCPCS: 99214; A6248; A6260 ==

== ENCOUNTER → 2024-01-29 | Outpatient (CLI) | payer OTHER | END | disposition home or self-care (01) | LOC: WHH 09:57 | PROVIDERS: ATTEND Family Medicine | DX: T81.31XD Disruption of external operation (surgical) wound, not elsewhere classified, subsequent encounter (principal); S71.102D Unspecified open wound, left thigh, subsequent encounter; L73.2 Hidradenitis suppurativa; E66.01 Morbid (severe) obesity due to excess calories; J45.909 Unspecified asthma, uncomplicated; Z79.4 Long term (current) use of insulin; Z68.34 Body mass index [BMI] 34.0-34.9, adult; Z79.899 Other long term (current) drug therapy; X58.XXXD Exposure to other specified factors, subsequent encounter; Y83.8 Other surgical procedures as the cause of abnormal reaction of the patient, or of later complication, without mention of misadventure at the time of the procedure | CPT/HCPCS: 99214; A6260 ==

== ENCOUNTER → 2024-02-05 | Outpatient (CLI) | payer OTHER | END | disposition home or self-care (01) | LOC: WHH 09:59 | PROVIDERS: ATTEND Family Medicine | DX: T81.31XD Disruption of external operation (surgical) wound, not elsewhere classified, subsequent encounter (principal); S71.102D Unspecified open wound, left thigh, subsequent encounter; L73.2 Hidradenitis suppurativa; E66.01 Morbid (severe) obesity due to excess calories; J45.909 Unspecified asthma, uncomplicated; Z79.4 Long term (current) use of insulin; Z79.899 Other long term (current) drug therapy; X58.XXXD Exposure to other specified factors, subsequent encounter; Y83.8 Other surgical procedures as the cause of abnormal reaction of the patient, or of later complication, without mention of misadventure at the time of the procedure | CPT/HCPCS: 99214; A4450 ==

== ENCOUNTER → 2024-02-12 | Outpatient (CLI) | payer OTHER | END | disposition home or self-care (01) | LOC: WHH 09:53 | PROVIDERS: ATTEND Family Medicine | DX: T81.31XD Disruption of external operation (surgical) wound, not elsewhere classified, subsequent encounter (principal); S71.102D Unspecified open wound, left thigh, subsequent encounter; L73.2 Hidradenitis suppurativa; E66.01 Morbid (severe) obesity due to excess calories; J45.909 Unspecified asthma, uncomplicated; Z79.4 Long term (current) use of insulin; Z68.34 Body mass index [BMI] 34.0-34.9, adult; Z79.899 Other long term (current) drug therapy; X58.XXXD Exposure to other specified factors, subsequent encounter; Y83.8 Other surgical procedures as the cause of abnormal reaction of the patient, or of later complication, without mention of misadventure at the time of the procedure | CPT/HCPCS: 99214 ==

== ENCOUNTER → 2024-02-14 | Outpatient (CLI) | payer OTHER | END | disposition home or self-care (01) | LOC: LAB 10:35 | PROVIDERS: ATTEND Internal Medicine | DX: L73.2 Hidradenitis suppurativa (principal); D72.829 Elevated white blood cell count, unspecified; D50.8 Other iron deficiency anemias | CPT/HCPCS: 36415; 82607; 82746 ==

== ENCOUNTER → 2024-02-19 | Outpatient (CLI) | payer OTHER | END | disposition home or self-care (01) | LOC: WHH 10:11 | PROVIDERS: ATTEND Family Medicine | DX: T81.31XD Disruption of external operation (surgical) wound, not elsewhere classified, subsequent encounter (principal); S71.102D Unspecified open wound, left thigh, subsequent encounter; L73.2 Hidradenitis suppurativa; E66.01 Morbid (severe) obesity due to excess calories; J45.909 Unspecified asthma, uncomplicated; Z79.4 Long term (current) use of insulin; Z79.899 Other long term (current) drug therapy; Z68.34 Body mass index [BMI] 34.0-34.9, adult; X58.XXXD Exposure to other specified factors, subsequent encounter; Y83.8 Other surgical procedures as the cause of abnormal reaction of the patient, or of later complication, without mention of misadventure at the time of the procedure | CPT/HCPCS: 99214 ==

== ENCOUNTER → 2024-02-26 | Outpatient (CLI) | payer OTHER | END | disposition home or self-care (01) | LOC: WHH 08:03 | PROVIDERS: ATTEND Family Medicine | DX: T81.31XD Disruption of external operation (surgical) wound, not elsewhere classified, subsequent encounter (principal); S71.102D Unspecified open wound, left thigh, subsequent encounter; L73.2 Hidradenitis suppurativa; E66.01 Morbid (severe) obesity due to excess calories; J45.909 Unspecified asthma, uncomplicated; Z68.34 Body mass index [BMI] 34.0-34.9, adult; Z79.4 Long term (current) use of insulin; Z79.899 Other long term (current) drug therapy; X58.XXXD Exposure to other specified factors, subsequent encounter; Y83.8 Other surgical procedures as the cause of abnormal reaction of the patient, or of later complication, without mention of misadventure at the time of the procedure | CPT/HCPCS: 99214 ==

== ENCOUNTER → 2024-03-04 | Outpatient (CLI) | payer OTHER | END | disposition home or self-care (01) | LOC: WHH 08:13 | PROVIDERS: ATTEND Family Medicine | DX: T81.31XD Disruption of external operation (surgical) wound, not elsewhere classified, subsequent encounter (principal); S71.102D Unspecified open wound, left thigh, subsequent encounter; L73.2 Hidradenitis suppurativa; E66.01 Morbid (severe) obesity due to excess calories; J45.909 Unspecified asthma, uncomplicated; Z79.4 Long term (current) use of insulin; Z79.899 Other long term (current) drug therapy; Z68.34 Body mass index [BMI] 34.0-34.9, adult; X58.XXXD Exposure to other specified factors, subsequent encounter; Y83.8 Other surgical procedures as the cause of abnormal reaction of the patient, or of later complication, without mention of misadventure at the time of the procedure | CPT/HCPCS: 99214; A4450 ==

== ENCOUNTER → 2024-03-18 | Outpatient (CLI) | payer OTHER | END | disposition home or self-care (01) | LOC: WHH 08:22 | PROVIDERS: ATTEND Family Medicine | DX: T81.31XD Disruption of external operation (surgical) wound, not elsewhere classified, subsequent encounter (principal); S71.102D Unspecified open wound, left thigh, subsequent encounter; L73.2 Hidradenitis suppurativa; E66.01 Morbid (severe) obesity due to excess calories; J45.909 Unspecified asthma, uncomplicated; Z68.34 Body mass index [BMI] 34.0-34.9, adult; Z79.4 Long term (current) use of insulin; Z79.899 Other long term (current) drug therapy; X58.XXXD Exposure to other specified factors, subsequent encounter; Y83.8 Other surgical procedures as the cause of abnormal reaction of the patient, or of later complication, without mention of misadventure at the time of the procedure | CPT/HCPCS: 99214 ==

== ENCOUNTER → 2024-03-25 | Outpatient (CLI) | payer OTHER | END | disposition home or self-care (01) | LOC: WHH 08:21 | PROVIDERS: ATTEND Family Medicine | DX: T81.31XD Disruption of external operation (surgical) wound, not elsewhere classified, subsequent encounter (principal); S71.102D Unspecified open wound, left thigh, subsequent encounter; L73.2 Hidradenitis suppurativa; E66.01 Morbid (severe) obesity due to excess calories; J45.909 Unspecified asthma, uncomplicated; Z68.34 Body mass index [BMI] 34.0-34.9, adult; Z79.4 Long term (current) use of insulin; Z79.899 Other long term (current) drug therapy; X58.XXXD Exposure to other specified factors, subsequent encounter; Y83.8 Other surgical procedures as the cause of abnormal reaction of the patient, or of later complication, without mention of misadventure at the time of the procedure | CPT/HCPCS: 99214 ==